=== PATIENT | male | born 1975 | race Caucasian/White ===

== ENCOUNTER → 2023-11-03 06:13 | Day surgery (SDC) | payer OTHER, SELFPAY | LOC: GI 06:13 | PROVIDERS: ATTENDING PHYSICIAN Internal Medicine Gastroenterology | DX: Z12.11 Encounter for screening for malignant neoplasm of colon (principal); K64.8 Other hemorrhoids; D12.5 Benign neoplasm of sigmoid colon | CPT/HCPCS: 45385; 88305 ==

== ENCOUNTER 2023-11-03 20:19 | Inpatient (IN) | payer OTHER, SELFPAY ==
[2023-11-03 19:00] VITALS: BP 95/66
[2023-11-03 19:11] VITALS: BP 106/76
[2023-11-03 19:15] VITALS: BMI 23.2
[2023-11-03] MEDS: ZOFRAN 4 MG IV (19:20)
[2023-11-03] MEDS: NSS 1000 IV (19:22)
--- NOTE | 2023-11-03 19:23 | ED.GENMED ---
History of Present Illness
General
Chief Complaint: Post Operative Problem(s)
Source: patient, spouse and family
Exam Limitations: none
Time Seen by Provider: 11/03/23 19:10
Nursing documentation reviewed up to this point in time: agreed with
Travel History
Have you had any contact with someone who has COVID-19?: No
Do you have any symptoms of coronavirus? Fever > 100 degrees, chills, cough, shortness of breath, sore throat, loss of taste or smell, muscle aches, or headache?: No
History of Present Illness
History of Present Illness:
48-year-old male presents emergency department due to a GI bleed. He had a colonoscopy this morning, and has had bleeding for the past several hours. Bright red blood. He does not take any blood thinners. He had a polyp removed from his proximal
sigmoid colon.
Past History
Past History
ED Past Medical History: None
ED Past Surgical History: Other (colonoscopy, polyp removed 11/03/23)
Social History
Tobacco: Non-smoker
Alcohol: None
Drug: None
Personal:
Living: with family
Employment: Employed
Review of Systems
Review of Systems
Allergies reviewed?: Yes
All Other Systems: Not applicable
Constitutional: Reports no symptoms
EENT: Reports no symptoms
Respiratory: Reports no symptoms
Cardiac: Reports no symptoms
ABD/GI: Reports bloody stools
: Reports no symptoms
Musculoskeletal: Reports no symptoms
Skin: Reports no symptoms
Neurological: Reports no symptoms
Endocrine: Reports no symptoms
Hematologic/Lymphatic: Reports no symptoms
Psychiatric: Reports no symptoms
Phy Exam
Physical Exam
Physical Exam:
Physical Exam
General: appears uncomfortable, afebrile
Neck: supple. no meningeal signs. normal posterior pharynx
Heart: s1/s2 tachycardia, no murmur. equal radial
pulses.
HEENT: Pupils equal round reactive to light, EOMI
Lungs: no acute respiratory distress. clear bilaterally
Abdomen: normal bowel sounds. not tender. no CVAT, rectal exam: bright red blood
Neuro: alert and oriented. no focal neurological deficits cranial nerves II through XII intact
Skin: no rash
Psychiatric: well kept. interactive and cooperative
Extremities: no edema. no calf tenderness. negative homans. good distal pulses
Course
Orders/Labs/Results
Orders:
Orders
11/03/23 19:09
Electrocardiogram (*1) Urgent
Reason for Study: Chest Pain
Cardiac Monitoring- Treatment ONCE
IV Insert/Care/Rem.- Treatment PRN
11/03/23 19:10
EKG- Treatment ONCE
11/03/23 19:11
IV Insert/Care/Rem.- Treatment PRN
0.9% Sodium Chloride 1000 ml [Nss] 1,000 ml IV BOLUS
11/03/23 19:18
Type+Screen Urgent
Complete Blood Count/With Diff Urgent
Comprehensive Metabolic Panel Urgent
11/03/23 19:19
Ondansetron Injectable [Zofran] 4 mg .ROUTE .STK-MED ONE
11/03/23 19:20
Ondansetron Injectable [Zofran] 4 mg IV NOW STA
11/03/23 20:01
Admit/Transfer Patient As Directed
Co-Sign Provider:
Level of Care: Inpatient admission
Assign to:: IMU- Intermediate Care
Physician / Group: stacie
Diagnosis: post polypectomy bleeding
Reason for Hospitalization: post polypectomy bleeding
Expected length of stay greater than two midnights?: Yes
ELOS- Estimated Length of Stay in days: 2
I certify the patient meets the requirements for IP care: Yes
11/03/23 20:02
Code Status As Directed
Resuscitation Status: Full Code
11/03/23 21:22
Hematocrit Urgent
Hemoglobin Urgent
11/03/23 22:05
simethicone [Gas-X Extra Strength] 500 mg PO UD
simvastatin 10 mg PO HS
11/03/23 22:05
Activity As Directed
Activity Level: As Tolerated
Pneumatic Compression Sleeves As Directed
Type: Knee high
Vital Signs As Directed
Frequency: Per unit guidelines
DX Deep Vein Thrombosis Video Routine
11/04/23 00:00
Hemoglobin Q6
11/04/23 06:00
Complete Blood Count/With Diff IN AM
Comprehensive Metabolic Panel IN AM
Hemoglobin Q6
11/04/23 12:00
Hemoglobin Q6
Abnormal Lab Results
11/03/23
19:18
RBC 4.33 L 10^6/uL
(4.70-6.10)
Hct 37.6 L %
(39.0-52.0)
MCH 31.2 H pg
(27.0-31.0)
Glucose 115 H mg/dl
(70-99)
11/03/23 19:18
11/03/23 19:18
Vital Signs
Initial and Last Documented VS:
Initial Vital Signs
Temp Resp BP
97.9 F 20 95/66
11/03/23 19:00 11/03/23 19:00 11/03/23 19:00
Last Documented Vital Signs
Temp Pulse Resp BP Pulse Ox
97.9 F 73 17 114/84 100
11/03/23 19:00 11/03/23 22:05 11/03/23 21:50 11/03/23 21:00 11/03/23 21:40
MDM/Problems Addressed
Differential Diagnosis Includes:
GI bleed
MDM/Problems Addressed:
48-year-old male with lower GI bleed, no blood transfusion indicated. Improved after IV fluids.
Chronic conditions affecting care:
Polyp
Acute Exacerbation and/or Progression of Chronic Illness:
Colonic polyp
*Pulse Oximetry
Patient hypoxic: no
*EKG
Interpreted by ED Provider?: Yes
EKG Intrepretation Date: 11/03/23
EKG Intrepretation Time: 19:25
Interpretation: abnormal
Comparison EKG: no comparison EKG present
Heart Rate: 80
Rate: normal
Rhythm: sinus
[place]: left axis deviation
Interval: normal interval
QRS Pattern: normal QRS
Ischemia: no ischemia
*Steam Fitter Interpretation
Rate: normal
Interpretation: normal
Heart Rate: 88
Rhythm: sinus
*Critical Care Note
Total Time (30-74mins, 75-104mins- exclusive of procedures): 30
comment:
Critical care statement: A total of 30 minutes of critical care time was provided for this patient. This includes management of unstable vital signs, evaluation of the patient at bedside, reviewing the patient's pertinent medical records, discussion
with consultants, review of old EKGs and review of pertinent medical records. This time with separate from time utilized to perform the aforementioned documented procedures
Data Reviewed
Review of Other/Old Records Reveals: Operative Reports (Colonoscopy report from today reviewed, polyp removed from proximal sigmoid)
Source: records
Patient Management
Social determinants of health affecting care: Living situation
Discussion with other providers: Hospitalist and Unclaimed Property Manager (Explosive Specialist, Dr. Pagan)
Escalation/DeEscalation of care consider admission/obs:
Admit indicated
ED Attending Note
-
Portions of this chart may have been created with voice recognition software.� Occasional wrong word or��sound alike� substitutions may have occurred due to the inherent limitations of voice recognition software.
Discharge Plan
Departure
Patient Disposition: Admit
Date of Disposition: 11/03/23
Time of Disposition: 19:45
Admit to: IMU
Presentation/result/management discussed w/ accepting MD/DO: Hospitalist
Patient with high blood pressure during this ER visit?: No
Condition: Fair
Discharge Problem:
Acute lower gastrointestinal bleeding
Interventions
Interventions:
*Risk Screen - Suicide Last Done: 11/03/23 19:00
*General Assessment Last Done: 11/03/23 19:00
*Neglect/Abuse Screening Last Done: 11/03/23 19:00
ED- Fall Risk Assessment Last Done: 11/03/23 19:27
*ED COVID-19 Vaccine History Last Done: 11/03/23 20:51
*Nursing Disposition Last Done: 11/03/23 22:07
ED-Skin Assessment Last Done: 11/03/23 19:27
Discharge Date and Time
Discharge Date/Time: 11/03/23 22:08
[2023-11-03 19:25] LABS: % Eosinophils 1.8 % (0-6); % Immature Granulocytes 0.2 % (0-0.5); % Lymphocytes 33.1 % (20.5-51.1); % Monocytes 7.8 % (1.7-9.3); % Neutrophils 56.1 % (42.2-75.2); Absolute Basophils 0.1 10^3/uL (0-0.2); Absolute Eosinophils 0.1 10^3/uL (0-0.7); Absolute Monocytes 0.5 10^3/uL (0.1-0.6); Absolute Neutrophils 3.5 10^3/uL (1.4-6.5); Hematocrit 37.6 % (39.0-52.0); Hemoglobin 13.5 g/dL (13.0-18.0); Mean Corp Hgb Conc. 35.9 g/dL (33.0-37.0); Mean Corpuscular Hgb 31.2 pg (27.0-31.0); Mean Corpuscular Volume 86.8 fL (80.0-94.0); Mean Platelet Volume 9.8 fL (7.4-10.4); Nucleated Red Blood Cells % 0 % (-); Platelet Count 304 10^3/uL (130-400); Red Blood Cell Count 4.33 10^6/uL (4.70-6.10); Red Cell Dist. Width 12.6 % (11.5-14.5); White Blood Cell Count 6.2 10^3/uL (4.8-10.8)
[2023-11-03 19:38] LABS: ALT (SGPT) 24 U/L (0-50); AST (SGOT) 26 U/L (17-59); Albumin 4.2 g/dl (3.5-5.0); Alkaline Phosphatase 61 U/L (38-126); Blood Urea Nitrogen 20 mg/dl (9-20); Calcium 9.1 mg/dl (8.4-10.2); Carbon Dioxide 26 mmol/L (22-30); Chloride 103 mmol/L (98-107); Estimated Creatinine Clearance 116 ml/min; Glucose 115 mg/dl (70-99); Potassium 3.8 mmol/L (3.5-5.1); Sodium 135 mmol/L (135-145); Total Bilirubin 0.9 mg/dl (0.2-1.3); Total Protein 6.7 g/dl (6.3-8.2); eGFR > 60.00
--- NOTE | 2023-11-03 20:03 | HPS.HSE ---
Addendum entered and electronically signed by Ramos Guajardo MD 11/03/23 20:58:
NPO past midnight.
Original Note:
Family Physician
-
Family Physician: Contreras Rodgers
Chief Complaint
-
rectal bleeding
History of Present Illness
48-year-old male without any past medical history presenting to the hospital for rectal bleeding. He had a screening colonoscopy this morning and had bright red bleeding for the past several hours. He had a polyp removed from proximal sigmoid
colon. He does not take blood thinners. He did have an episode of vomiting today. Denies any abdominal pain. He did have some dizziness earlier but denies any chest pain or shortness of breath.
He previously had right ankle surgery.
Denies smoking or alcohol use.
Medical History
Past Medical History
Past Medical History: Reports None
Past Surgical History: Reports Orthopedic
Social History
Tobacco: Non-smoker
Alcohol: None
Drug: None
Family History
Family History: Not pertinent
Allergies / Home Medications
Allergies reflects when Allergies were last updated in [employer]
Home Medications with original date entered in [employer]
Allergy/Medication List:
Allergies
Allergy/AdvReac Type Severity Reaction Status Date / Time
No Known Allergies Allergy Unverified 11/03/23 18:59
Home Medications
aspirin 81 mg capsule 81 mg PO 11/03/23
bisacodyl 5 mg tablet,delayed release (Dulcolax (bisacodyl)) 20 mg PO UD 11/03/23
peg 3350 240 gram-electrolytes 22.72 gram-6.72 g-5.84 g powdr for soln (Gavilyte-C) 4,000 ml PO UD 11/03/23
simethicone 125 mg chewable tablet (Gas-X Extra Strength) 500 mg PO UD 11/03/23
simvastatin 10 mg tablet 10 mg PO 11/03/23
Review of Systems
-
History Source: Patient
A 12 point ROS was completed and negative except as noted: Yes
Constitutional: Reports No Symptoms
EENT: Reports No Symptoms
Respiratory: Reports No Symptoms
Cardiac: Reports No Symptoms
Abdomen/GI: Reports See HPI
: Reports No Symptoms
Musculoskeletal: Reports No Symptoms
Skin: Reports No Symptoms
Neurological: Reports No Symptoms
Endocrine: Reports No Symptoms
Hematologic/Lymphatic: Reports No Symptoms
Psych: Reports No Symptoms
Physical Exam
Vital Signs
Vital Signs
Temp Pulse Resp BP Pulse Ox
97.9 F 79 15 106/76 99
11/03/23 19:00 11/03/23 19:43 11/03/23 19:43 11/03/23 19:11 11/03/23 19:43
Physical Exam
General: Well Developed, Well Nourished and No Apparent Distress
HEENT: NormoCephalic, Moist mucous membranes and Atraumatic
Respiratory: Clear
Cardiac: S1/S2 and Regular Rhythm; No Murmur or Rub
GI: Soft, Non Tender, Non Distended and Normal Bowel Sounds; No Organomegaly
Rectal: Deferred by Provider
Musculoskeletal: No Clubbing, No Cyanosis and No Edema
Skin: No Rash
Neuro: Nonfocal/grossly intact
Laboratory Results
-
11/03/23 19:18
Laboratory Results
Total Bilirubin 0.9 mg/dl (0.2-1.3) 11/03/23 19:18
AST 26 U/L (17-59) 11/03/23 19:18
ALT 24 U/L (0-50) 11/03/23 19:18
Alkaline Phosphatase 61 U/L (38-126) 11/03/23 19:18
Data Reviewed
-
Lab Data: Labs Reviewed by me
Old Records: Reviewed
Impression/Plan
-
IMPRESSION:
PLAN:
# Post polypectomy bleeding
-Hemodynamically stable
-Hemoglobin 13.5
-Monitor Hb q6
-type and screen, blood consent signed. Transfuse if significant drop in Hb
-Clear liquid diet
-Hold aspirin
-GI consulted
Full code
DVT prophylaxis�SCDs
Clear liquid diet
[2023-11-03 21:00] VITALS: BP 114/84
[2023-11-03 21:33] LABS: Hematocrit 33.3 % (39.0-52.0); Hemoglobin 11.9 g/dL (13.0-18.0)
--- NOTE | 2023-11-03 22:00 | CON.GI ---
Consultation
-
Date/Time Consultation Requested: 11/03/2023
Date/Time Consultation Performed: 11/03/2023
Requesting Provider: ED
Performing Provider: Anneliese TAYLOR
Reason for Consultation: BRBPR
Medical History
Chief Complaint / HPI
Chief Complaint: rectal bleeding
History of Present Illness:
48 y/o male with no significant PMHx who underwent screening colonoscopy this am with removal of a 18 mm polyp in the sigmoid polyp started having BRBPR since this afternoon . Multiple BMs with blood. He also felt light headedness . He was advised
to go to ED by . denies and abdominal pain/ nausea/ vomiting . On admission Hb 13.
Past Medical History
Past Medical History: None
Past Surgical History: Other
Social History
Tobacco: Non-Smoker
Alcohol: None
Allergies / Home Medications
Allergy/AdvReac Type Severity Reaction Status Date / Time
No Known Allergies Allergy Unverified 11/03/23 18:59
Medication Instructions Recorded
aspirin 81 mg capsule 81 mg PO HS 11/03/23
bisacodyl 5 mg tablet,delayed 20 mg PO UD 11/03/23
release (Dulcolax (bisacodyl))
peg 3350 240 gram-electrolytes 4,000 ml PO UD 11/03/23
22.72 gram-6.72 g-5.84 g powdr for
soln (Gavilyte-C)
simethicone 125 mg chewable tablet 500 mg PO UD 11/03/23
(Gas-X Extra Strength)
simvastatin 10 mg tablet 10 mg PO HS 11/03/23
Review of Systems
-
All other systems: A 12 pt ROS was Negative except as stated above in HPI
Vital Signs
Temp Pulse Resp BP Pulse Ox
97.9 F 72 15 114/84 100
11/03/23 19:00 11/03/23 21:00 11/03/23 21:00 11/03/23 21:00 11/03/23 21:00
Physical Exam
Exam
General: Well Developed
Respiratory: Clear
Cardiac: S1/S2
GI: Soft, Non Tender and Non Distended
Neuro: AO x 3
Results
WBC 6.2 10^3/uL (4.8-10.8) 11/03/23 19:18
Hgb 11.9 g/dL (13.0-18.0) L 11/03/23 21:22
Hct 33.3 % (39.0-52.0) L 11/03/23 21:22
MCV 86.8 fL (80.0-94.0) 11/03/23 19:18
Plt Count 304 10^3/uL (130-400) 11/03/23 19:18
Absolute Neuts (auto) 3.5 10^3/uL (1.4-6.5) 11/03/23 19:18
Sodium 135 mmol/L (135-145) 11/03/23 19:18
Potassium 3.8 mmol/L (3.5-5.1) 11/03/23 19:18
Chloride 103 mmol/L (98-107) 11/03/23 19:18
Carbon Dioxide 26 mmol/L (22-30) 11/03/23 19:18
BUN 20 mg/dl (9-20) 11/03/23 19:18
Creatinine 0.9 mg/dL (0.7-1.3) 11/03/23 19:18
Calcium 9.1 mg/dl (8.4-10.2) 11/03/23 19:18
Total Bilirubin 0.9 mg/dl (0.2-1.3) 11/03/23 19:18
AST 26 U/L (17-59) 11/03/23 19:18
ALT 24 U/L (0-50) 11/03/23 19:18
Alkaline Phosphatase 61 U/L (38-126) 11/03/23 19:18
Diagnostic Image Results:
Prior GI Procedures:
EGD:
Colonoscopy:
11/03/2023
Impression:� � � � � � - One 18 mm polyp in the proximal sigmoid colon at 35
�� � � � � � � � � � � cm proximal to the anus, removed with a hot snare.
�� � � � � � � � � � � Resected and retrieved.
�� � � � � � � � � � � - Internal hemorrhoids.
�� � � � � � � � � � � - The examination was otherwise normal.
Assessment / Plan
-
48 y/o who underwent screening colonoscopy this am with removal of a 18 mm polyp in the sigmoid polyp started having BRBPR since this afternoon. Hb on admission 13. No bleeding since hospital admission. vitals stable.
Rectal bleeding - secondary to post polypectomy bleeding
plan
monitor H/H
clear liquid diet
NPO after MN
if bleeding persists will do flexible sigmoidoscopy in am
-
-
Thank you for consultation and allowing me to participate in the patient's care. Please call the funeral location manager GI physician during the after hours with any questions or concerns.
[2023-11-03 22:06] VITALS: BP 119/76
[2023-11-03 23:09] VITALS: BMI 23.1
[2023-11-03] MEDS: LIPITOR 10 MG PO (23:32)
[2023-11-04] VITALS (7 sets, daily range): BP systolic 106–118; BP diastolic 66–83
[2023-11-04 00:48] LABS: Hemoglobin 11.7 g/dL (13.0-18.0)
[2023-11-04 06:32] LABS: % Basophils 0.6 % (0-2); % Eosinophils 1.2 % (0-6); % Immature Granulocytes 0.2 % (0-0.5); % Lymphocytes 24.9 % (20.5-51.1); % Monocytes 7.6 % (1.7-9.3); % Neutrophils 65.5 % (42.2-75.2); Absolute Basophils 0.1 10^3/uL (0-0.2); Absolute Eosinophils 0.1 10^3/uL (0-0.7); Absolute Lymphocytes 2.2 10^3/uL (1.2-3.4); Absolute Monocytes 0.7 10^3/uL (0.1-0.6); Absolute Neutrophils 5.8 10^3/uL (1.4-6.5); Hematocrit 34.5 % (39.0-52.0); Hemoglobin 12.1 g/dL (13.0-18.0); Mean Corp Hgb Conc. 35.1 g/dL (33.0-37.0); Mean Corpuscular Hgb 31.3 pg (27.0-31.0); Mean Corpuscular Volume 89.1 fL (80.0-94.0); Nucleated Red Blood Cells % 0 % (-); Platelet Count 256 10^3/uL (130-400); Red Blood Cell Count 3.87 10^6/uL (4.70-6.10); Red Cell Dist. Width 12.7 % (11.5-14.5); White Blood Cell Count 8.9 10^3/uL (4.8-10.8)
[2023-11-04 06:47] LABS: ALT (SGPT) 21 U/L (0-50); AST (SGOT) 35 U/L (17-59); Albumin 3.6 g/dl (3.5-5.0); Alkaline Phosphatase 53 U/L (38-126); Blood Urea Nitrogen 21 mg/dl (9-20); Calcium 8.6 mg/dl (8.4-10.2); Carbon Dioxide 19 mmol/L (22-30); Chloride 108 mmol/L (98-107); Estimated Creatinine Clearance > 125 ml/min; Glucose 90 mg/dl (70-99); Potassium 4.6 mmol/L (3.5-5.1); Sodium 133 mmol/L (135-145); Total Bilirubin 1.4 mg/dl (0.2-1.3); Total Protein 6.2 g/dl (6.3-8.2); eGFR > 60.00
--- NOTE | 2023-11-04 07:00 | W.PN.HOSP.TC ---
Today's Communication/Plan
-
Continue to monitor hemodynamics and H&H
Continue clear liquids
Will defer to gastroenterology for discharge plan/will discharge when cleared
Assessment / Plan
Assessment / Plan
48-year-old male without any past medical history presenting to the hospital for rectal bleeding.� He had a screening colonoscopy this morning and had bright red bleeding for the past several hours.� He had a polyp removed from proximal sigmoid
colon.� He does not take blood thinners.� He did have an episode of vomiting today.� Denies any abdominal pain.� He did have some dizziness earlier but denies any chest pain or shortness of breath.
He previously had right ankle surgery.
Denies smoking or alcohol use.
# Post polypectomy bleeding
-Hemodynamically stable
-Hemoglobin 13.5>> 11.7 >> 12.1
-Monitor Hb q6
-type and screen, blood consent signed. Transfuse if significant drop in Hb�
-Clear liquid diet
-Hold aspirin
-GI consulted saw and will do flex sig this morning if any reactive patient of bleeding but none seen overnight
Full code
DVT prophylaxis�SCDs
Clear liquid diet
Anticipated Discharge: Within 24 hours
Subjective/Interval History
-
Date of Service: November 04, 2023
No abdominal pain restful night no passage of bright red blood per rectum no dizziness no chest pain no shortness of breath.
Objective Data
-
Labs:
Laboratory Results
11/03/23 11/03/23 11/04/23
19:18 21:22 00:39
WBC 6.2
Hgb 13.5 11.9 L 11.7 L
Hct 37.6 L 33.3 L
Plt Count 304
Sodium 135
Potassium 3.8
Chloride 103
Carbon Dioxide 26
BUN 20
Creatinine 0.9
Glucose 115 H
Calcium 9.1
Total Bilirubin 0.9
AST 26
ALT 24
Alkaline Phosphatase 61
11/04/23 11/04/23
06:21 12:00
WBC 8.9
Hgb 12.1 L Pending
Hct 34.5 L
Plt Count 256
Sodium 133 L
Potassium 4.6
Chloride 108 H
Carbon Dioxide 19 L
BUN 21 H
Creatinine 0.7
Glucose 90
Calcium 8.6
Total Bilirubin 1.4 H
AST 35
ALT 21
Alkaline Phosphatase 53
Vital Signs:
Vital Signs
Temp Pulse Resp BP Pulse Ox
98.5 F 60 12 111/66 100
11/04/23 03:10 11/04/23 04:00 11/04/23 04:00 11/04/23 04:00 11/04/23 04:00
Review of Systems
-
History Source: Patient
Constitutional: Reports No Symptoms
EENT: Reports No Symptoms Reported
Respiratory: Reports No Symptoms
Cardiac: Reports No Symptoms
Abdomen/GI: Reports No Symptoms
Physical Exam
-
General: Well Developed
HEENT: Normocephalic
Respiratory: Clear to Auscultation
Cardiac: Regular Rhythm
GI: Soft
Skin: Warm
Data Reviewed
-
Total Time Spent with Patient (in minutes): 45
Labs: Labs Reviewed by me (Hemoglobin 12.1 and rising from admission)
--- NOTE | 2023-11-04 09:19 | W.PN.GI.CBS2 ---
Today's Communication / Plan
-
advance diet
monitor H/H
Assessment / Plan
-
48 y/o who underwent screening colonoscopy this am with removal of a 18 mm polyp in the sigmoid polyp started having BRBPR since this afternoon. Hb on admission 13. No bleeding since hospital admission. vitals stable.
Rectal bleeding - secondary to post polypectomy bleeding
plan
No further bleeding since admission ( overnight and this am). Feeling better. Hb is relatively stable around 11-12.
Discussed about conservative management with advancing diet monitoring Hb this afternoon vs flexible sigmoidoscopy . Patient prefers conservative Mx and would like to hold off on Flex.sig.
Advance diet. If no further bleeding and his Hb is stable in the afternoon ok to to d/c and follow up with .
Total Time Spent with Patient (in minutes): 35
Subjective
Subjective
Date of Service: November 04, 2023
No bleeding overnight. feeling better
Objective
Data Reviewed
Laboratory Data:
Laboratory Results
11/04/23 06:21
Laboratory Results
Total Bilirubin 1.4 mg/dl (0.2-1.3) H 11/04/23 06:21
AST 35 U/L (17-59) 11/04/23 06:21
ALT 21 U/L (0-50) 11/04/23 06:21
Alkaline Phosphatase 53 U/L (38-126) 11/04/23 06:21
Vital Signs and I&O:
Vital Signs
Temp Pulse Resp BP Pulse Ox
98.4 F 63 11 106/70 99
11/04/23 07:00 11/04/23 08:00 11/04/23 08:00 11/04/23 08:00 11/04/23 08:00
Physical Exam
Physical Exam
GI: Soft, Non Distended, Non Tender and Normal Bowel Sounds
--- NOTE | 2023-11-04 11:40 | CM ---
CM reviewed medical records. Patient is medically ready for discharge. No CM needs noted.
PLAN: Home no needs.
--- NOTE | 2023-11-04 12:18 | PTCARENOTE ---
no bleeding or stool this morning. patient tolerating clear liquids without nausea or abdominal pain. ambulated to the bathroom with contact guard without dizziness or lightheadedness. voided in the toilet. b/p stable ranging 106-1 teens/70-80's,
MAP 80-90. heart rate 60-80's sinus rhythm. continuing to monitor
[2023-11-04 13:10] LABS: Hemoglobin 11.1 g/dL (13.0-18.0)
--- NOTE | 2023-11-04 13:52 | W.DCSUMMARY ---
Discharge Summary
Discharge Data
Date of Admission: 11/03/23
Date of Discharge: 11/04/23
-
Pending Results: No
Hospital Course
48-year-old male who underwent a screening colonoscopy and removal of an 18 mm polyp in the sigmoid on 02 November admission date developed bright red blood per rectum in the afternoon prompting evaluation presentation hemoglobin of 13 remained stable
he was observed overnight to assess for recurrence of rectal bleeding secondary to post polypectomy. Hemodynamically remaining stable with hemoglobin stable between 11 and 12.0. His aspirin therapy was held at the time of presentation and will be
held for the next week GI consultation was had and discussed with the patient in regards to conservative management with advancing diet and monitoring his H&H throughout the day prior to his discharge versus flexible sigmoidoscopic and the patient
chose conservative management holding off on intervention with flex sig. His diet was thusly advanced and there have been no further complications and/or hemodynamic compromise that would suggest any further bleeding he was deemed stable for
discharge the afternoon of 03 November and he will have follow-up further with Dr. Sánchez as scheduled. He was again instructed to withhold any further aspirin usage until 1 week's time which would be by 09 November.
Discharge Plan
-
Patient Disposition: Home (Routine Discharge)
Discharge Diagnosis/Procedures: Rectal bleeding post polypectomy
No significant blood loss anemia or hemodynamic compromise
Diet: Regular
Activity: No restrictions
Driving Restrictions: As prior to admission
Activity Restrictions/Additional Instructions:
Hold off on aspirin usage for 1 week's time can resume on 09 November
Referrals:
Contreras Rodgers MD [Family Provider] - in less than 1 week
Prescriptions:
Continued
simvastatin 10 mg Tablet
10 mg PO HS
simethicone [Gas-X Extra Strength] 125 mg Tablet,Chewable
500 mg PO UD
Rx Instructions:
For Colonscopy prep
Held
aspirin 81 mg Capsule
81 mg PO HS
Hold Instructions: Resume on 11/10/23. Hold aspirin for 1 week
Discontinued
bisacodyl [Dulcolax (bisacodyl)] 5 mg Tablet,Delayed Release (Dr/Ec)
20 mg PO UD
Rx Instructions:
For Colonscopy prep
GaviLyte-C 240-22.72-6.72 -5.84 gram recon soln
4,000 ml PO UD
Rx Instructions:
For Colonscopy prep
Discharge Orders:
Discharge Patient (As Directed); Ordered 11/04/23
Ordered By: Mina Shore
== END 2023-11-04 15:36 | disposition home or self-care (01) | DRG 921 ==
LOC: IMU 20:19
PROVIDERS: ADMITTING PHYSICIAN Hospitalist; ATTENDING PHYSICIAN Internal Medicine; CONSULT PHYSICIAN Internal Medicine Gastroenterology; EMERGENCY PHYSICIAN Emergency Medicine; FAMILY PHYSICIAN Internal Medicine
DX: K91.840 Postprocedural hemorrhage of a digestive system organ or structure following a digestive system procedure (principal); Y83.8 Other surgical procedures as the cause of abnormal reaction of the patient, or of later complication, without mention of misadventure at the time of the procedure
CPT/HCPCS: 80053; 85014; 85018; 85025; 86850; 86900; 86901; 93005; 96361; 96374; 99291

== ENCOUNTER 2024-03-15 06:21 | Day surgery (SDC) | payer OTHER, SELFPAY ==
[2024-03-15] VITALS (9 sets, daily range): BP systolic 101–124; BP diastolic 61–76; BMI 25.1
[2024-03-15] MEDS: TYLENOL 1000 MG PO (13:12)
[2024-03-15] MEDS: NORMOSOL-R 1000 IV (13:27)
== END 2024-03-15 18:52 | disposition home or self-care (01) ==
LOC: SDS 06:21
PROVIDERS: ATTENDING PHYSICIAN Surgery
DX: K40.90 Unilateral inguinal hernia, without obstruction or gangrene, not specified as recurrent (principal)
CPT/HCPCS: 49650; C1781